=== PATIENT | female | born 2005 | race Hispanic/Latino ===

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

== ENCOUNTER 2025-04-06 10:42 | Emergency (ER) | payer BC, SELFPAY ==
[2025-04-06] MEDS ORDERED: Dexamethasone 4 MG TAB ONE (11:22)
[2025-04-06] MEDS ORDERED: Ketorolac Tromethamine 30 MG (1 mL) VIAL ONE (11:23)
[2025-04-06] MEDS ORDERED: Acetaminophen 500 MG TAB ONE (12:00)
== END 2025-04-06 12:05 | disposition home or self-care (01) ==
LOC: ERS 10:42
DX: J02.9 Acute pharyngitis, unspecified (principal); F17.290 Nicotine dependence, other tobacco product, uncomplicated
CPT/HCPCS: 87081; 87426; 87430; 96372; 99283; J1885; J8540